=== PATIENT | female | born 1965 | race Caucasian/White ===

== ENCOUNTER 2018-01-12 19:26 | Emergency (ER) | payer OTHER ==
[2018-01-12 19:31] VITALS: BP 141/89; PULSE 83; RESP 18; TEMP 98.8; O2SAT 99
[2018-01-12] MEDS ORDERED: ORPHENADRINE INJ 60 MG/2 ML AMP IM ONE (20:30)
[2018-01-12] MEDS ORDERED: KETOROLAC TROMETHAMINE 60 MG/2 ML (IM) VIAL IM ONE (20:30)
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
== END 2018-01-12 21:32 | disposition home or self-care (01) ==
LOC: NEPD 19:26
DX: S16.1XXA Strain of muscle, fascia and tendon at neck level, initial encounter (principal); V89.2XXA Person injured in unspecified motor-vehicle accident, traffic, initial encounter; M25.512 Pain in left shoulder; Z96.612 Presence of left artificial shoulder joint; Z98.1 Arthrodesis status
CPT/HCPCS: 72125; 73030; 96372; 99284; J1885